=== PATIENT | female | born 1975 | race Two or more races ===

== ENCOUNTER 2020-10-09 12:27 | Inpatient (IN) | payer OTHER, SELFPAY ==
[~2020-10-09] VITALS: Ht 160 cm; Wt 66.8 kg
--- NOTE | 2020-10-09 12:56 | NUR ---
JOCELYNE FROM HOME. EMS REPORTS PT HAS BEEN HAVING MORE FREQUENT SEIZURES ESTIMATING 6 SEIZURES OVER LAST 24 HRS. LAST SEIZURE WAS CLOSELY BEFORE EMS ARRIVED AT RESIDENCE. PT APPEARS TO BE POST ICTAL AND SOMNOLENT AND POSSIBLE BITTEN TONGUE. AWAITING TO ARRIVE TO GET MORE DETAILS. EMS STARTED 20G RIGHT AC AND GAVE ABOUT 400 ML NS. PT TAKES KEPRA, TOPIRIMATE, AND METPHORMEN PT ATTACHED TO CARDIAC/SP02/BP MONITORS. VSS WITH SLIIGHTLY ELEVATED HR & R SEIZURE PRECAUTIONS INITIATED, PADS IN PLACE, SUCTION READY AT BEDSIDE BED IN LOW POSITION, CALL LGITH WITHIN REACH WITNESSED SEIZURE BY , NO HEAD INJUY APPEARANT.
[2020-10-09 13:04] LABS: BASOPHILS % (AUTO) 1 % (0-1); EOSINOPHILS % (AUTO) 0 % (1-7); LYMPHOCYTES % (AUTO) 4 % (22-44); MONOCYTES % (AUTO) 4 % (2-9); NEUTROPHILS % (AUTO) 91 % (42-75); PLATELET COUNT 445 x10^3/uL (130-400); RED BLOOD COUNT 4.63 x10^6/uL (3.82-5.3); RED CELL DISTRIBUTION WIDTH 18.7 % (9.6-15.2)
[2020-10-09 13:07] LABS: MEAN CORPUSCULAR HGB CONC 29.7 g/dL (32.4-35.8)
[2020-10-09 13:12] LABS: MD NO
[2020-10-09 13:13] LABS: ALBUMIN 3.9 g/dL (3.4-5.0); ANION GAP 11 mmol/L (5-15); CALCIUM 8.5 mg/dL (8.5-10.1); CHLORIDE 113 mmol/L (98-107); CREATININE 0.93 mg/dL (0.55-1.02)
[2020-10-09] MEDS ORDERED: LORazepam 2 MG/ML, 1ML ONE (13:57)
[2020-10-09] MEDS ORDERED: LORazepam 2 MG/ML, 1ML IV ONE (14:00)
[2020-10-09] MEDS ORDERED: SODIUM CHLORIDE 0.9% 1,000ML IVBOLUS ONE (14:00)
--- NOTE | 2020-10-09 14:00 | NUR ---
PT RESTING IN GURNEY. SEIZURE PRECAUTIONS IN PLACE. PT STILL DROWSY, NOT ABLE TO COMMUNICATE. PT WILL FOLLOW SIMPLE COMMANDS. AT BEDSIDE. STATED THAT OVER THE PAST 24 HOURS, PT HAS JUST BEEN SLEEPING IN BETWEEN HER SEIZURES.
[2020-10-09] MEDS ORDERED: LORazepam 2 MG/ML, 1ML IV PRN (14:30)
[2020-10-09] MEDS ORDERED: PLEASE ENTER ALLERGIES MC SCH (15:00)
[2020-10-09 15:52] LABS: MICROSCOPIC AUTO
[2020-10-09 16:06] LABS: AMPHETAMINE SCREEN, URINE Negative (Negative); BARBITURATE SCREEN, URINE Negative (Negative); BENZODIAZEPINE SCREEN, URINE Negative (Negative); CANNABINOID SCREEN, URINE Negative (Negative); COCAINE SCREEN, URINE Negative (Negative); METHADONE SCREEN, URINE Negative (Negative); OPIATE SCREEN, URINE Negative (Negative)
--- NOTE | 2020-10-09 16:20 | NUR ---
BREAK RN: PT SLEEPING ON ANK[place]RZACH, AT BS. NADN/VSS. CALL LIGHT WITHIN REACH. SEIZURE PRECAUTIONS IN PLACE
--- NOTE | 2020-10-09 16:48 | NUR ---
REPORT CALLED TO HERMELINDA BARRAGAN
[2020-10-09 17:18] VITALS: BP 131/80
[2020-10-09] MEDS: D5%-0.45% NACL 1,000 ML IV SCH (18:20)
[2020-10-09] MEDS: INSULIN LISPRO 100 UNITS/ML, PEN SQ-INSULIN SCH ×2 (18:20→21:45)
[2020-10-09] MEDS: metFORMIN 500 MG TABLET PO SCH (18:20)
[2020-10-09] MEDS ORDERED: SODIUM PHOSPHATE 30 MMOL in SODIUM CHLORIDE 0.9% 500 ML IV ONE (18:30)
[2020-10-09 19:01] VITALS: BP 130/78
[2020-10-09] MEDS: ENOXAPARIN 40 MG/0.4 ML SQ SCH (21:09)
[2020-10-09] MEDS: LEVETIRACETAM 500 MG TABLET PO SCH (21:10)
[2020-10-09] MEDS: TOPIRAMATE 100 MG TABLET PO SCH (21:10)
[2020-10-10 00:23] VITALS: BP 116/72
[2020-10-10] MEDS ORDERED: ACETAMINOPHEN 325 MG TABLET ONE (01:11)
[2020-10-10] MEDS: ACETAMINOPHEN 325 MG TABLET PO PRN ×2 (01:19→13:20)
[2020-10-10 04:58] LABS: BASOPHILS % (AUTO) 0 % (0-1); EOSINOPHILS % (AUTO) 0 % (1-7); LYMPHOCYTES % (AUTO) 16 % (22-44); MEAN CORPUSCULAR HEMOGLOBIN 19.1 pg (27.0-34.8); MEAN CORPUSCULAR HGB CONC 30.1 g/dL (32.4-35.8); MEAN PLATELET VOLUME 8.9 fL (7.4-10.4); MONOCYTES % (AUTO) 6 % (2-9); NEUTROPHILS % (AUTO) 77 % (42-75); PLATELET COUNT 389 x10^3/uL (130-400); RED CELL DISTRIBUTION WIDTH 18.5 % (9.6-15.2)
[2020-10-10 05:00] LABS: MD NO
[2020-10-10 05:11] LABS: ANION GAP 8 mmol/L (5-15); CHLORIDE 110 mmol/L (98-107)
[2020-10-10 05:13] LABS: CALCIUM 8.1 mg/dL (8.5-10.1); CREATININE 0.52 mg/dL (0.55-1.02)
[2020-10-10] MEDS ORDERED: LEVE10007 PO (05:48)
[2020-10-10] MEDS ORDERED: METF10007 PO (05:48)
[2020-10-10] MEDS ORDERED: TOPI100T8 PO (05:48)
[2020-10-10 06:47] VITALS: BP 118/71
[2020-10-10] MEDS ORDERED: POTASSIUM CHLORIDE 20 MEQ TAB.ER.PRT PO ONE (07:30)
[2020-10-10] MEDS ORDERED: POTASSIUM PHOSPHATE 44 MEQ in SODIUM CHLORIDE 0.9% 500 ML IV ONE (07:30)
[2020-10-10] MEDS: INSULIN LISPRO 100 UNITS/ML, PEN SQ-INSULIN SCH ×4 (07:52→21:04)
[2020-10-10] MEDS: LEVETIRACETAM 500 MG TABLET PO SCH ×2 (08:30→20:56)
[2020-10-10] MEDS: metFORMIN 500 MG TABLET PO SCH ×2 (08:30→16:54)
[2020-10-10] MEDS: TOPIRAMATE 100 MG TABLET PO SCH (08:32)
[2020-10-10 13:24] VITALS: BP 129/78
[2020-10-10] MEDS ORDERED: GADOTERATE 7.5 MMOL/15ML SYR ONE (15:19)
[2020-10-10] MEDS: D5%-0.45% NACL 1,000 ML IV SCH (15:36)
[2020-10-10 19:20] VITALS: BP 124/73
[2020-10-10] MEDS: TOPIRAMATE 25 MG TABLET PO SCH (20:56)
[2020-10-10] MEDS: ENOXAPARIN 40 MG/0.4 ML SQ SCH (21:00)
[2020-10-11 02:00] VITALS: BP 117/68
[2020-10-11 04:56] LABS: BASOPHILS % (AUTO) 1 % (0-1); EOSINOPHILS % (AUTO) 2 % (1-7); LYMPHOCYTES % (AUTO) 35 % (22-44); MEAN CORPUSCULAR HEMOGLOBIN 19.2 pg (27.0-34.8); MEAN CORPUSCULAR HGB CONC 30.3 g/dL (32.4-35.8); MEAN PLATELET VOLUME 8.8 fL (7.4-10.4); MONOCYTES % (AUTO) 7 % (2-9); NEUTROPHILS % (AUTO) 56 % (42-75); PLATELET COUNT 367 x10^3/uL (130-400); RED CELL DISTRIBUTION WIDTH 18.6 % (9.6-15.2)
[2020-10-11 04:57] LABS: MD NO
[2020-10-11 05:02] LABS: ANION GAP 7 mmol/L (5-15); CALCIUM 8.4 mg/dL (8.5-10.1); CHLORIDE 108 mmol/L (98-107); CREATININE 0.59 mg/dL (0.55-1.02)
[2020-10-11] MEDS: D5%-0.45% NACL 1,000 ML IV SCH (05:20)
[2020-10-11 06:41] VITALS: BP 124/72
[2020-10-11] MEDS: INSULIN LISPRO 100 UNITS/ML, PEN SQ-INSULIN SCH ×2 (07:42→11:09)
[2020-10-11] MEDS: TOPIRAMATE 25 MG TABLET PO SCH (07:42)
[2020-10-11] MEDS: LEVETIRACETAM 500 MG TABLET PO SCH (07:42)
[2020-10-11] MEDS: metFORMIN 500 MG TABLET PO SCH (07:42)
[2020-10-11] MEDS: POTASSIUM CHLORIDE 20 MEQ TAB.ER.PRT PO SCH ×2 (08:00→11:09)
[2020-10-11] MEDS ORDERED: LAMOTRIGINE 25 MG TABLET PO SCH (11:00)
[2020-10-11] MEDS ORDERED: TOPI25TA32 PO (11:23)
[2020-10-11] MEDS ORDERED: LAMO25TA9 PO (11:23)
[2020-10-11] MEDS ORDERED: LEVE500T53 PO (11:23)
[2020-10-11] MEDS ORDERED: POTA20TA6 PO (11:23)
[2020-10-11 12:08] VITALS: BP 131/81
== END 2020-10-11 13:25 | disposition home or self-care (01) | DRG 101 ==
LOC: ED 14:35 → EDIP 14:42 → 4WST 17:05 → DCLOUNGE 10-11 13:19
PROVIDERS: ADMIT Internal Medicine Infectious Disease; ATTEND Hospitalist
DX: G40.919 Epilepsy, unspecified, intractable, without status epilepticus (principal); E87.2 Acidosis; E11.9 Type 2 diabetes mellitus without complications; D72.828 Other elevated white blood cell count; E83.39 Other disorders of phosphorus metabolism; E86.0 Dehydration; E87.6 Hypokalemia; F32.9 Major depressive disorder, single episode, unspecified; Z79.899 Other long term (current) drug therapy
CPT/HCPCS: 36415; 70553; 80048; 80177; 80201; 80307; 81001; 82040; 82672; 82962; 83036; 83735; 84100; 84132; 84144; 84145; 84146; 84443; 84703; 84999; 85025; 93005; 96360; G0378; J1650; A9575; J1815; J2060; J7030; J7040